=== PATIENT | female | born 1970 | race Caucasian/White ===

== ENCOUNTER 2023-04-25 08:06 | Emergency (ER) | payer OTHER ==
[~2023-04-25] VITALS: Ht 157.5 cm; Wt 59.9 kg
[2023-04-25 08:18] VITALS: BP 116/61; TEMP 98; O2SAT 100
[2023-04-25] MEDS ORDERED: DOXY100T2 PO (08:28)
== END 2023-04-25 08:48 | disposition home or self-care (01) ==
LOC: ER 08:12
DX: S60.361A Insect bite (nonvenomous) of right thumb, initial encounter (principal); Z60.2 Problems related to living alone; W57.XXXA Bitten or stung by nonvenomous insect and other nonvenomous arthropods, initial encounter; Y93.89 Activity, other specified; Y92.89 Other specified places as the place of occurrence of the external cause; Y99.8 Other external cause status

== ENCOUNTER 2024-05-02 19:07 | Emergency (ER) | payer OTHER ==
[~2024-05-02] VITALS: Ht 157.5 cm; Wt 61.2 kg
[~2024-05-02 19:07] MED LIST: DOXY100T2 PO
[2024-05-02 19:22] VITALS: BP 112/67; TEMP 98; O2SAT 98
== END 2024-05-02 19:44 | disposition home or self-care (01) ==
LOC: ER 19:10
DX: M25.551 Pain in right hip (principal)